=== PATIENT | male | born 1970 | race Caucasian/White ===

== ENCOUNTER → 2021-08-14 | Day surgery (SDC) | payer OTHER ==
[~2021-08-14] VITALS: Ht 177.8 cm; Wt 99.3 kg
[~2021-08-14] MED LIST: BENAZEPRIL HCL20 MG PO; CIALIS5 MG PO; OMEPRAZOLE10 MG PO; PRAVASTATIN SOD10 MG PO; SYNTHROID150 MCG PO; VITAMIN B122500 MCG PO; VITAMIN D3125 MC2 PO; WELLBUTRIN XL300 MG PO; ZYRTEC10 M3 PO
== END | disposition home or self-care (01) ==
LOC: FAS 09:54
DX: Z12.11 Encounter for screening for malignant neoplasm of colon (principal); D12.3 Benign neoplasm of transverse colon; K63.5 Polyp of colon; K64.1 Second degree hemorrhoids; I10 Essential (primary) hypertension; G47.30 Sleep apnea, unspecified; Z99.89 Dependence on other enabling machines and devices; Z85.46 Personal history of malignant neoplasm of prostate; Z79.899 Other long term (current) drug therapy
CPT/HCPCS: J2250; J2704; J7120